=== PATIENT | female | born 1960 | race Caucasian/White ===

== ENCOUNTER 2022-02-10 08:23 | Outpatient (CLI) | payer BC | END 2022-02-10 08:24 | disposition home or self-care (01) | LOC: CSHMAMMO 08:23 | PROVIDERS: ATTEND Internal Medicine | DX: Z12.31 Encounter for screening mammogram for malignant neoplasm of breast (principal) | CPT/HCPCS: 77063; 77067 ==

== ENCOUNTER 2022-11-16 15:07 | Outpatient (CLI) | payer BC | END 2022-11-16 15:08 | disposition home or self-care (01) | LOC: CSHMAMMO 15:07 | PROVIDERS: ATTEND Internal Medicine | DX: Z13.820 Encounter for screening for osteoporosis (principal); M85.88 Other specified disorders of bone density and structure, other site | CPT/HCPCS: 77080 ==

== ENCOUNTER 2023-06-15 09:15 | Outpatient (CLI) | payer BC | END 2023-06-15 09:16 | disposition home or self-care (01) | LOC: CSHMAMMO 09:15 | PROVIDERS: ATTEND Internal Medicine | DX: Z12.31 Encounter for screening mammogram for malignant neoplasm of breast (principal) | CPT/HCPCS: 77063; 77067 ==